=== PATIENT | male | born 1995 | race Caucasian/White ===

== ENCOUNTER 2020-07-30 23:16 | Emergency (ER) | payer BC ==
[~2020-07-30] VITALS: Ht 188 cm; Wt 65.8 kg
[2020-07-30 23:30] VITALS: BP 120/66
--- NOTE | 2020-07-30 23:45 | NUR ---
[employer] ACCOMPANIED EDP DR. BOLDEN FOR RECTAL/DIGITAL EXAM. PT TOLERATED EXAM WELL.
[2020-07-30] MEDS ORDERED: LIDOCAINE VISCOUS MM STA (23:47)
[2020-07-30] MEDS ORDERED: LIDOCAINE VISCOUS ONE (23:48)
--- NOTE | 2020-07-30 23:54 | ER.PDOC ---
General Chief Complaint: General Complaint Stated Complaint: POSS HEMORRHOIDS Time seen by MD: 23:46 Source: patient Exam Limitations: no limitations History of Present Illness Initial Comments patient c/o rectal pain--he was experimenting with anal sex and did not utilize lubricant Timing/Duration: 1 week Severity/Quality: moderate Location of pain: Generalize (rectal) Prior symptoms/Treatment: No Similar symptoms previous, No Recenly Seen, No Treated by Doctor, No Recently Hospitalized Allergies: Coded Allergies: No Known Allergies (Unverified , 06/06/17) Past Medical History Medical History: no pertinent history Surgical History: no surgical history Family History Significant Family History: no pertinent family hx Social History Smoking: cigarettes Alcohol Use: none Drug Use: none Constitutional: denies no symptoms reported, denies see HPI, denies chills, denies diaphoresis, denies fever, denies malaise, denies weakness, denies other EENTM: denies no symptoms reported, denies see HPI, denies eye pain, denies blurred vision, denies tearing, denies double vision, denies ear pain, denies ear discharge, denies nose pain, denies nose congestion, denies throat pain, denies throat swelling, denies mouth pain, denies mouth swelling, denies other Respiratory: denies no symptoms reported, denies see HPI, denies cough, denies orthopnea, denies shortness of breath, denies SOB with exertion, denies SOB at rest, denies stridor, denies wheezing, denies other Cardiovascular: denies no symptoms reported, denies see HPI, denies chest pain, denies edema, denies irregular heart rate, denies lightheadedness, denies palpitations, denies syncope, denies other ABD/GI (ROS): rectal bleeding (c/o rectal pain (not bleeding) after aggressive anal sex 1 week ago without lubricant) Genitourinary: denies no symptoms reported, denies see HPI, denies burning, denies dysuria, denies discharge, denies frequency, denies flank pain, denies hematuria, denies incontinence, denies pain, denies urgency, denies other Musculoskeletal: denies no symptoms reported, denies see HPI, denies back pain, denies gout, denies joint pain, denies joint swelling, denies muscle pain, denies muscle stiffness, denies neck pain, denies other Skin: denies no symptoms reported, denies see HPI, denies change in color, denies change in hair/nails, denies dryness, denies lesions, denies lumps, denies rash, denies other All Other Systems: Reviewed and Negative Physical Exam General Appearance: No Apparent Distress, WD/WN EENT: eyes nml inspection, nml ENT inspection Neck: nml inspection, non-tender Respiratory: lungs clear, normal breath sounds, no respiratory distress, no accessory muscle use Cardiovascular: Regular Rate, Rhythm, No Murmur Gastrointestinal: Normal Bowel Sounds, Non Tender Rectal: Normal Exam (I see no fissures or evidence of trauma, no hemorrhoids), Normal Rectal Tone (no internal hemorrhoids) Back: Normal Inspection, No CVA Tenderness Extremities: Normal Range of Motion, No Pedal Edema Neurologic/Psychiatric: Alert, Oriented x 3 Skin: Normal Color, Warm/Dry ER DEPART Departure Time of Disposition: 23:56 Disposition: 01 HOME, SELF-CARE Impression: Primary Impression: Anal or rectal pain Condition: Stable Referrals: PCP,UNKNOWN (PCP) PRIMARY CARE PROVIDER Additional Instructions: Use the viscous lidocaine as needed to reduce pain until healing has occurred. Continue dulcolax until healed. Avoid putting anything in your rectum in the future. Return to ER if symptoms worsen, fever, or for any other emergent con cerns. Follow up with your doctor next week for reevaluation. Duration or Time Spent with Pa: 20 min AJITH BOLDEN DO Jul 30, 2020 23:54
[2020-07-31 00:05] VITALS: BP 119/68
== END 2020-07-31 00:05 | disposition home or self-care (01) ==
LOC: ER 23:16
DX: K62.89 Other specified diseases of anus and rectum (principal); F17.210 Nicotine dependence, cigarettes, uncomplicated
CPT/HCPCS: 99282; J3490